=== PATIENT | female | born 1980 | race Caucasian/White ===

== ENCOUNTER 2017-10-31 15:09 | Emergency (ER) | payer OTHER ==
[2017-10-31 15:42] VITALS: BP 161/92; PULSE 65; RESP 18; TEMP 98.2
[2017-10-31] MEDS ORDERED: DIPH,PERTUS(ACELL)TETVAC-LF 0.5 ML VIAL IM ONE (15:51)
--- NOTE | 2017-10-31 16:05 | ED ---
General Adult HPI - General Chief complaint: Animal Bite Stated complaint: cat bite Time Seen by Provider: 10/31/17 15:49 Source: patient, RN notes reviewed Mode of arrival: ambulatory Limitations: no limitations - History of Present Illness Initial comments: 36-year-old female presents to the emergency department for a chief complaint of Bite times one day. Patient was bitten by her own cat this morning. Patient states it did bleed. Patient is concerned for infection. Patient denies any fevers or chills at home. Patient states the cat is an indoor cat and never has been outside. Patient states the cat is not vaccinated but is acting normally. Patient is concerned because she develops vaginal yeast infections with antibiotics. She would like Diflucan pill as that helps her. Patient states she did clean the wound out extensively earlier today. Patient has no other complaints at this time including shortness of breath, chest pain, abdominal pain, nausea or vomiting, headache, or visual changes. - Related Data Previous Rx's Medication Instructions Recorded Doxycycline Hyclate [Vibramycin] 100 mg PO BID 14 Days cap 10/31/17 Fluconazole [Diflucan] 150 mg PO ONCE #1 tab 10/31/17 Allergies Allergy/AdvReac Type Severity Reaction Status Date / Time cephalexin [From Keflex] Allergy Unknown Verified 10/31/17 15:42 Penicillins Allergy Unknown Verified 10/31/17 15:42 Review of Systems ROS Statement: Those systems with pertinent positive or pertinent negative responses have been documented in the HPI. ROS Other: All systems not noted in ROS Statement are negative. Past Medical History Past Medical History: No Reported History History of Any Multi-Drug Resistant Organisms: None Reported Past Surgical History: Section Past Psychological History: No Psychological Hx Reported Smoking Status: Never smoker Past Alcohol Use History: Unable to Obtain Past Drug Use History: None Reported General Exam Limitations: no limitations General appearance: alert, in no apparent distress Head exam: Present: atraumatic, normocephalic, normal inspection Eye exam: Present: normal appearance ENT exam: Present: normal exam, mucous membranes moist Neck exam: Present: normal inspection, full ROM. Absent: tenderness, meningismus, lymphadenopathy Respiratory exam: Present: normal lung sounds bilaterally. Absent: respiratory distress, wheezes, rales, rhonchi, stridor Cardiovascular Exam: Present: regular rate, normal rhythm, normal heart sounds. Absent: systolic murmur, diastolic murmur, rubs, gallop, clicks Extremities exam: Present: full ROM (Full range of motion of the right upper extremity including digits in the hand and wrist and elbow.), normal capillary refill (Refill less than 2 seconds and radial pulse 2+.), other (Patient has 2 puncture wounds on the dorsal right forearm. No drainage from the wounds. No slightly changes such as spreading redness. No excoriations noted.) Course Vital Signs 10/31/17 15:39 Temperature 98.2 F Pulse Rate 65 Respiratory 18 Rate Blood Pressure 161/92 O2 Sat by Pulse 100 Oximetry Medical Decision Making - Medical Decision Making 36-year-old female presents to the emergency department for a chief complaint Bite times one day. Patient was bitten earlier today. No signs of infection at this time. Is not vaccinated the patient states it is an indoor cat and has never been outside. Patient states she can monitor it for 10 days and watch for erratic behavior as recommended by CDC. There are 2 small puncture wounds on the right forearm. No signs of infection at this time. Patient's wounds were soaked in soapy water and cleaned thoroughly. She was given a tetanus shot in the emergency department. She is penicillin ALLERGIC so will be given doxycycline for 14 days. She will take Diflucan as well. She will follow up with primary care in 1-2 days and return to the emergency Department if she has any worsening symptoms or signs of infection including fever. Disposition Clinical Impression: Cat bite Disposition: HOME SELF-CARE Condition: Good Instructions: Animal Bite (ED) Additional Instructions: Please take antibiotic as directed. Please follow-up with primary care in 1-2 days. If symptoms worsen or he began to experience signs of infection such as spreading redness, streaking redness, drainage or fever return immediately. Please monitor the cat for the next 10 days for erratic behavior. Prescriptions: Doxycycline Hyclate [Vibramycin] 100 mg PO BID 14 Days cap Fluconazole [Diflucan] 150 mg PO ONCE #1 tab Is patient prescribed a controlled substance at d/c from ED?: No Referrals: Pipe Bernardo MD [Primary Care Provider] - 1-2 days Time of Disposition: 16:02
== END 2017-10-31 16:10 | disposition home or self-care (01) ==
LOC: EC 15:09
DX: S51.831A Puncture wound without foreign body of right forearm, initial encounter (principal); Z88.0 Allergy status to penicillin; Z88.1 Allergy status to other antibiotic agents; Z23 Encounter for immunization; W55.01XA Bitten by cat, initial encounter; Y92.009 Unspecified place in unspecified non-institutional (private) residence as the place of occurrence of the external cause
CPT/HCPCS: 90471; 90715; 99283

== ENCOUNTER 2018-09-25 23:20 | Emergency (ER) | payer OTHER ==
--- NOTE | 2018-09-26 00:20 | ED ---
General Adult HPI - General Source: patient, RN notes reviewed Mode of arrival: ambulatory Limitations: no limitations <Aidan Grullon - Last Filed: 09/26/18 00:51> <Lona Kaplan P - Last Filed: 09/26/18 02:39> - General Chief complaint: Urogenital Stated complaint: Possible foreign body Time Seen by Provider: 09/25/18 23:55 - History of Present Illness Initial comments: Patient is a pleasant 37-year-old female presenting to the emergency department with concern for possible retained tampon in the vaginal vault. Patient has had some symptoms for the past couple of days. Patient has noticed a discharge. Michael aguirre has had some mild pelvic discomfort. Patient has some urinary urgency and small amounts. Patient states she did have some nausea with an episode of vomiting. This has improved. Patient does admit to feeling anxious. (Aidan Grullon) - Related Data Previous Rx's Medication Instructions Recorded metroNIDAZOLE [Flagyl] 500 mg PO BID #14 tab 09/26/18 Allergies Allergy/AdvReac Type Severity Reaction Status Date / Time cephalexin [From Keflex] Allergy Unknown Verified 09/25/18 23:31 Penicillins Allergy Unknown Verified 09/25/18 23:31 Review of Systems ROS Other: All systems not noted in ROS Statement are negative. Constitutional: Reports: fever (Patient states she may have had a fever yesterday) Eyes: Denies: eye pain ENT: Denies: ear pain Respiratory: Denies: cough Cardiovascular: Denies: chest pain Endocrine: Denies: fatigue Gastrointestinal: Reports: as per HPI, nausea Genitourinary: Reports: urgency, frequency, discharge Musculoskeletal: Denies: back pain Skin: Denies: rash Neurological: Denies: weakness <Aidan Grullon - Last Filed: 09/26/18 00:51> ROS Other: All systems not noted in ROS Statement are negative. <Lona Kaplan P - Last Filed: 09/26/18 02:39> ROS Statement: Those systems with pertinent positive or pertinent negative responses have been documented in the HPI. Past Medical History Past Medical History: No Reported History History of Any Multi-Drug Resistant Organisms: None Reported Past Surgical History: Appendectomy, Section, Cholecystectomy Additional Past Surgical History / Comment(s): 2 tubal pregnancys Past Psychological History: No Psychological Hx Reported Smoking Status: Never smoker Past Alcohol Use History: Unable to Obtain Past Drug Use History: None Reported <Aidan Grullon - Last Filed: 09/26/18 00:51> General Exam Limitations: no limitations General appearance: alert, in no apparent distress Head exam: Present: atraumatic Eye exam: Present: normal appearance, PERRL ENT exam: Present: normal oropharynx Neck exam: Present: normal inspection Respiratory exam: Present: normal lung sounds bilaterally Cardiovascular Exam: Present: regular rate, normal rhythm GI/Abdominal exam: Present: soft. Absent: distended, tenderness External exam: Present: normal external exam (RN Adore is present) Speculum exam: Present: vaginal discharge By manual exam: Present: other (Mild diffuse tenderness) Extremities exam: Present: normal inspection. Absent: pedal edema, calf tenderness Neurological exam: Present: alert Psychiatric exam: Present: normal affect, normal mood Skin exam: Present: normal color <Aidan Grullon - Last Filed: 09/26/18 00:51> Course Vital Signs 09/25/18 23:28 Temperature 98.8 F Pulse Rate 98 Respiratory 18 Rate Blood Pressure 119/94 O2 Sat by Pulse 99 Oximetry Medical Decision Making <Aidan Grullon - Last Filed: 09/26/18 00:51> - Lab Data Result diagrams: 09/26/18 00:44 09/26/18 00:44 <Lona Kaplan - Last Filed: 09/26/18 02:39> - Medical Decision Making Patient would like further evaluation including blood work and ultrasound. This has been ordered. Vaginal cultures have been sent to lab. There is suspicion for bacterial vaginosis. Final disposition will be endorsed to Dr. Kaplan. (Aidan Grullon) - Lab Data Lab Results 09/26/18 09/26/18 09/26/18 Range/Units 00:00 00:00 00:44 WBC (3.8-10.6) k/uL RBC (3.80-5.40) m/uL Hgb (11.4-16.0) gm/dL Hct (34.0-46.0) % MCV (80.0-100.0) fL MCH (25.0-35.0) pg MCHC (31.0-37.0) g/dL RDW (11.5-15.5) % Plt Count (150-450) k/uL Neutrophils % % Lymphocytes % % Monocytes % % Eosinophils % % Basophils % % Neutrophils # (1.3-7.7) k/uL Lymphocytes # (1.0-4.8) k/uL Monocytes # (0-1.0) k/uL Eosinophils # (0-0.7) k/uL Basophils # (0-0.2) k/uL Sodium (137-145) mmol/L Potassium (3.5-5.1) mmol/L Chloride (98-107) mmol/L Carbon Dioxide (22-30) mmol/L Anion Gap mmol/L BUN (7-17) mg/dL Creatinine (0.52-1.04) mg/dL Est GFR (CKD-EPI)AfAm (>60 ml/min/1.73 sqM) Est GFR (CKD-EPI)NonAf (>60 ml/min/1.73 sqM) Glucose (74-99) mg/dL Calcium (8.4-10.2) mg/dL Total Bilirubin (0.2-1.3) mg/dL AST (14-36) U/L ALT (9-52) U/L Alkaline Phosphatase (38-126) U/L Total Protein (6.3-8.2) g/dL Albumin (3.5-5.0) g/dL Urine Color Yellow Urine Appearance Cloudy H (Clear) Urine pH 6.0 (5.0-8.0) Ur Specific Brandon 1.033 (1.001-1.035) Urine Protein 1+ H (Negative) Urine Glucose (UA) Negative (Negative) Urine Ketones Trace H (Negative) Urine Blood Moderate H (Negative) Urine Nitrite Negative (Negative) Urine Bilirubin Negative (Negative) Urine Urobilinogen 2.0 (<2.0) mg/dL Ur Leukocyte Esterase Moderate H (Negative) Urine RBC >182 H (0-5) /hpf Urine WBC 1 (0-5) /hpf Ur Squamous Epith Cells 12 H (0-4) /hpf Urine Mucus Many H (None) /hpf Urine HCG, Qual Not Detected (Not Detectd) Trichomonas Ag (Rapid) Negative (Negative) 09/26/18 09/26/18 Range/Units 00:44 00:44 WBC 7.1 (3.8-10.6) k/uL RBC 4.51 (3.80-5.40) m/uL Hgb 13.2 (11.4-16.0) gm/dL Hct 38.3 (34.0-46.0) % MCV 84.9 (80.0-100.0) fL MCH 29.2 (25.0-35.0) pg MCHC 34.4 (31.0-37.0) g/dL RDW 12.8 (11.5-15.5) % Plt Count 260 (150-450) k/uL Neutrophils % 48 % Lymphocytes % 42 % Monocytes % 7 % Eosinophils % 1 % Basophils % 0 % Neutrophils # 3.4 (1.3-7.7) k/uL Lymphocytes # 3.0 (1.0-4.8) k/uL Monocytes # 0.5 (0-1.0) k/uL Eosinophils # 0.1 (0-0.7) k/uL Basophils # 0.0 (0-0.2) k/uL Sodium 138 (137-145) mmol/L Potassium 3.7 (3.5-5.1) mmol/L Chloride 104 (98-107) mmol/L Carbon Dioxide 27 (22-30) mmol/L Anion Gap 7 mmol/L BUN 14 (7-17) mg/dL Creatinine 0.75 (0.52-1.04) mg/dL Est GFR (CKD-EPI)AfAm >90 (>60 ml/min/1.73 sqM) Est GFR (CKD-EPI)NonAf >90 (>60 ml/min/1.73 sqM) Glucose 85 (74-99) mg/dL Calcium 9.3 (8.4-10.2) mg/dL Total Bilirubin 0.9 (0.2-1.3) mg/dL AST 19 (14-36) U/L ALT 16 (9-52) U/L Alkaline Phosphatase 42 (38-126) U/L Total Protein 6.4 (6.3-8.2) g/dL Albumin 4.1 (3.5-5.0) g/dL Urine Color Urine Appearance (Clear) Urine pH (5.0-8.0) Ur Specific Brandon (1.001-1.035) Urine Protein (Negative) Urine Glucose (UA) (Negative) Urine Ketones (Negative) Urine Blood (Negative) Urine Nitrite (Negative) Urine Bilirubin (Negative) Urine Urobilinogen (<2.0) mg/dL Ur Leukocyte Esterase (Negative) Urine RBC (0-5) /hpf Urine WBC (0-5) /hpf Ur Squamous Epith Cells (0-4) /hpf Urine Mucus (None) /hpf Urine HCG, Qual (Not Detectd) Trichomonas Ag (Rapid) (Negative) Disposition <Aidan Grullon - Last Filed: 09/26/18 00:51> Is patient prescribed a controlled substance at d/c from ED?: No <Lona Kaplan - Last Filed: 09/26/18 02:39> Clinical Impression: Bacterial vaginosis Disposition: HOME SELF-CARE Condition: Stable Instructions (If sedation given, give patient instructions): Bacterial Vaginosis (ED) Prescriptions: metroNIDAZOLE [Flagyl] 500 mg PO BID #14 tab Referrals: None,Stated [Primary Care Provider] - 1-2 days
[2018-09-26 00:31] LABS: Appearance,Urine Cloudy (Clear); Bilirubin,Urine Negative (Negative); Blood,Urine Moderate (Negative); Color,Urine Yellow; Glucose,Urine (UA) Negative (Negative); Ketones,Urine Trace (Negative); Leukocyte Esterase,Urine Moderate (Negative); Mucus,Urine Many /hpf; Nitrite,Urine Negative (Negative); Protein,Urine 1+ (Negative); RBC,Urine >182 /hpf (0-5); Specific Gravity,Urine 1.033 (1.001-1.035); Squamous Epithelial Cell,Urine 12 /hpf (0-4); WBC,Urine 1 /hpf (0-5)
[2018-09-26] MEDS ORDERED: SODIUM CHLORIDE 0.9% 1,000 ML IV ONE (00:50)
[2018-09-26] MEDS ORDERED: ONDANSETRON 4 MG/2 ML VIAL IVP STA (00:50)
[2018-09-26 01:16] LABS: Basophils % (A) 0 %; Eosinophils # (A) 0.1 k/uL (0-0.7); Eosinophils % (A) 1 %; HCT 38.3 % (34.0-46.0); HGB 13.2 gm/dL (11.4-16.0); Lymphocytes % (A) 42 %; MCH 29.2 pg (25.0-35.0); MCHC 34.4 g/dL (31.0-37.0); MCV 84.9 fL (80.0-100.0); Monocytes # (A) 0.5 k/uL (0-1.0); Monocytes % (A) 7 %; Neutrophils # (A) 3.4 k/uL (1.3-7.7); Neutrophils % (A) 48 %; Platelet Count 260 k/uL (150-450); RBC 4.51 m/uL (3.80-5.40); RDW 12.8 % (11.5-15.5); WBC 7.1 k/uL (3.8-10.6)
[2018-09-26 01:24] LABS: ALT 16 U/L (9-52); AST 19 U/L (14-36); Albumin 4.1 g/dL (3.5-5.0); Alkaline Phosphatase 42 U/L (38-126); Anion Gap 7 mmol/L; Blood Urea Nitrogen 14 mg/dL (7-17); Calcium 9.3 mg/dL (8.4-10.2); Carbon Dioxide 27 mmol/L (22-30); Chloride 104 mmol/L (98-107); Glucose 85 mg/dL (74-99); Potassium 3.7 mmol/L (3.5-5.1); Sodium 138 mmol/L (137-145); Total Bilirubin 0.9 mg/dL (0.2-1.3); Total Protein 6.4 g/dL (6.3-8.2)
--- NOTE | 2018-09-26 01:51 | US ---
EXAM: US Pelvis Complete, Transabdominal US Pelvis, Transvaginal CLINICAL HISTORY: ITS.REASON US Reason: pain TECHNIQUE: Real-time transabdominal and transvaginal pelvic ultrasound (complete) with image documentation. Transvaginal imaging was used for better evaluation of the endometrium and adnexa. COMPARISON: No relevant prior studies available. FINDINGS: EXAM MEASUREMENTS: Uterus: 8.7 x 4.9 x 6.1 cm Endometrial Stripe: 1.2 cm Right Ovary: 3.2 x 2.0 x 1.8 cm Left Ovary: 3.1 x 2.5 x 2.4 cm Uterus is anteverted and appears normal. Endometrial complex is unremarkable. Ovaries are identified and appear normal. Spectral, color, and waveform doppler imaging shows good arterial and venous flow within the ovaries; there is no evidence for ovarian torsion. No adnexal masses or significant free pelvic fluid. IMPRESSION: No significant abnormality.
--- NOTE | 2018-09-26 02:22 | XR ---
EXAM: XR Abdomen, 2 Views CLINICAL HISTORY: ITS.REASON XR Reason: Pain TECHNIQUE: Frontal view of the abdomen/pelvis with upright view of the abdomen. COMPARISON: No relevant prior studies available. FINDINGS: Lower thorax: Lung bases are clear. Intraperitoneal space: No free intraperitoneal air. Gastrointestinal tract: Normal bowel gas pattern. No dilation. Organs: Prior cholecystectomy. Bones/joints: Bones are normal for age. Vasculature: Multiple phleboliths at the inferior pelvis. Other findings: No suspicious calcifications. IMPRESSION: No acute disease or bowel obstruction.
[2018-09-26 03:12] VITALS: BP 122/73; PULSE 84; RESP 19; TEMP 97.9
[2018-09-27 15:31] LABS: N. gonorrhoeae,PCR Negative (Neg,Equiv); Neisseria Source Vagina
[2018-09-27 15:32] LABS: C. trachomatis,PCR Negative (Neg,Equiv); Chlamydia trachomatis Source Vagina
== END 2018-09-26 02:49 | disposition home or self-care (01) ==
LOC: EC 23:20
DX: N76.0 Acute vaginitis (principal); R11.2 Nausea with vomiting, unspecified; R39.15 Urgency of urination; R19.8 Other specified symptoms and signs involving the digestive system and abdomen; Z88.0 Allergy status to penicillin; Z88.1 Allergy status to other antibiotic agents; Z90.49 Acquired absence of other specified parts of digestive tract
CPT/HCPCS: 36415; 74018; 76830; 80053; 81001; 81025; 85025; 87070; 87086; 87205; 87491; 87591; 87808; 93975; 96361; 96374; 99284

== ENCOUNTER 2022-02-27 13:34 | Emergency (ER) | payer OTHER ==
[2022-02-27 13:49] VITALS: BP 142/83; PULSE 66; RESP 18; TEMP 98
--- NOTE | 2022-02-27 17:01 | US ---
EXAMINATION TYPE: US venous doppler duplex LE RT DATE OF EXAM: 02/27/2022 4:38 PM COMPARISON: NONE CLINICAL HISTORY: pain. stung by a bee 2 weeks ago. Epi pen shot right leg. Bruising and pain right l eg SIDE PERFORMED: Right TECHNIQUE: The lower extremity deep venous system is examined utilizing real time linear array sonog andres with graded compression, doppler sonography and color-flow sonography. VESSELS IMAGED: Common Femoral Vein Deep Femoral Vein Greater Saphenous Vein * Femoral Vein Popliteal Vein Small Saphenous Vein * Proximal Calf Veins (* superficial vessels) Right Leg: no evidence of DVT IMPRESSION: No sign of deep vein thrombosis in the right leg.
[2022-02-27] MEDS ORDERED: CYCLOBENZAPRINE 5 MG TAB PO STA (17:14)
[2022-02-27] MEDS ORDERED: KETOROLAC 15 MG/ML 1 ML VIAL IVP STA (17:14)
--- NOTE | 2022-02-27 18:23 | ED ---
Skin/Abscess/FB HPI - General Chief complaint: Skin/Abscess/Foreign Body Stated complaint: right leg-bruising & swelling Time Seen by Provider: 02/27/22 16:13 Source: patient Mode of arrival: ambulatory Limitations: no limitations - History of Present Illness Initial comments: Patient is a 41-year-old female who presents to the emergency department with a chief complaint of right leg pain. 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 States today she noticed bruising in her leg with pain. Patient uses the EpiPen in her right lateral which resulted in swelling near the region. The next day she noticed bruising on the outsides of her right knee. She denies injury. States the bruising is continue to trave l down her leg over the past 2 weeks. The pain has shifted from behind her knee to the front and back of her lower leg. Taking Motrin for pain with some relief. Denies leg numbness, tingling, weakness. She denies history of DVT and PE. Denies family history of DVT and PE. Denies history of blood disorders although does admit to family history of clotting disorder that her aunt has which she does not know the name of. Denies fever, chills, chest pain, shortness of breath, - Related Data Previous Rx's Medication Instructions Recorded metroNIDAZOLE [Flagyl] 500 mg PO BID #14 tab 09/26/18 Allergies Allergy/AdvReac Type Severity Reaction Status Date / Time bee pollen Allergy Swelling Verified 02/27/22 13:49 cephalexin [From Keflex] Allergy Unknown Verified 02/27/22 13:49 Penicillins Allergy Unknown Verified 02/27/22 13:49 Review of Systems ROS Statement: Those systems with pertinent positive or pertinent negative responses have been documented in the HPI. ROS Other: All systems not noted in ROS Statement are negative. Past Medical History Past Medical History: No Reported History History of Any Multi-Drug Resistant Organisms: None Reported Past Surgical History: Appendectomy, Section, Cholecystectomy Additional Past Surgical History / Comment(s): 2 tubal pregnancys Past Psychological History: No Psychological Hx Reported Smoking Status: Former smoker Past Alcohol Use History: Unable to Obtain Past Drug Use History: None Reported General Exam Limitations: no limitations General appearance: alert, in no apparent distress Head exam: Present: atraumatic, normocephalic, normal inspection Eye exam: Present: normal appearance, PERRL, EOMI. Absent: scleral icterus, conjunctival injection, periorbital swelling Respiratory exam: Present: normal lung sounds bilaterally. Absent: respiratory distress, wheezes, rales, rhonchi, stridor Cardiovascular Exam: Present: regular rate, normal rhythm, normal heart sounds. Absent: systolic murmur, diastolic murmur, rubs, gallop, clicks Extremities exam: Present: full ROM, normal capillary refill, other (ecchymosis which starts at the medial/lateral aspect of right knee and travels down lower leg. no swelling. no foot involvement. skin warm, neurovascularly intact). Absent: pedal edema, joint swelling, calf tenderness Neurological exam: Present: alert, oriented X3, CN II-XII intact Psychiatric exam: Present: normal affect, normal mood Skin exam: Present: warm, dry, intact, normal color. Absent: rash Course Vital Signs 02/27/22 13:46 Temperature 98.0 F Pulse Rate 66 Respiratory 18 Rate Blood Pressure 142/83 O2 Sat by Pulse 100 Oximetry Medical Decision Making - Medical Decision Making This is a 41-year-old female presenting with bruising and pain in the right lower extremity. Ecchymosis noted which starts at the medial/lateral aspect of right knee and travels down lower leg. no swelling. no foot involvement. skin warm, neurovascularly intact. Full ROM, no pain with ROM. No calf tenderness. No chest pain or SOB. Ultrasound with Doppler was obtained and interpreted by me which is negative for DVT. Laboratory studies obtained. Platelets normal. PT, INR, PTT normal. Patient given Toradol and and muscle relaxer with improvement of pain. Results discussed with patient. Patient likely experiencing pain due to hematoma. Patient will be discharged with symptomatic instructions. Dr. De Dios is my attending. - Lab Data Result diagrams: 02/27/22 18:16 02/27/22 18:16 Lab Results 02/27/22 02/27/22 02/27/22 Range/Units 18:16 18:16 18:16 WBC 6.6 (3.8-10.6) k/uL RBC 4.43 (3.80-5.40) m/uL Hgb 13.5 (11.4-16.0) gm/dL Hct 39.4 (34.0-46.0) % MCV 89.0 (80.0-100.0) fL MCH 30.6 (25.0-35.0) pg MCHC 34.4 (31.0-37.0) g/dL RDW 12.0 (11.5-15.5) % Plt Count 233 (150-450) k/uL MPV 8.2 Neutrophils % 57 % Lymphocytes % 33 % Monocytes % 5 % Eosinophils % 3 % Basophils % 0 % Neutrophils # 3.8 (1.3-7.7) k/uL Lymphocytes # 2.2 (1.0-4.8) k/uL Monocytes # 0.3 (0-1.0) k/uL Eosinophils # 0.2 (0-0.7) k/uL Basophils # 0.0 (0-0.2) k/uL PT 10.5 (9.0-12.0) sec INR 1.0 (<1.2) APTT 27.8 (22.0-30.0) sec Sodium 138 (137-145) mmol/L Potassium 4.1 (3.5-5.1) mmol/L Chloride 104 (98-107) mmol/L Carbon Dioxide 28 (22-30) mmol/L Anion Gap 6 mmol/L BUN 10 (7-17) mg/dL Creatinine 0.71 (0.52-1.04) mg/dL Est GFR (CKD-EPI)AfAm >90 (>60 ml/min/1.73 sqM) Est GFR (CKD-EPI)NonAf >90 (>60 ml/min/1.73 sqM) Glucose 98 (74-99) mg/dL Calcium 9.2 (8.4-10.2) mg/dL Total Bilirubin 0.6 (0.2-1.3) mg/dL AST 20 (14-36) U/L ALT 17 (4-34) U/L Alkaline Phosphatase 61 (38-126) U/L Total Protein 6.8 (6.3-8.2) g/dL Albumin 4.6 (3.5-5.0) g/dL Disposition Clinical Impression: Right leg pain, Ecchymosis, Hematoma Disposition: HOME SELF-CARE Condition: Good Instructions (If sedation given, give patient instructions): Hematoma (ED) Additional Instructions: Take anti-inflammatories for pain. Elevate right lower extremity. Follow-up with primary care provider in one to 2 days. Return to the emergency department experience new, concerning, or worsening symptoms. Is patient prescribed a controlled substance at d/c from ED?: No Referrals: None,Stated [Primary Care Provider] - 1-2 days Time of Disposition: 19:28
[2022-02-27 18:28] LABS: Basophils % (A) 0 %; Eosinophils # (A) 0.2 k/uL (0-0.7); Eosinophils % (A) 3 %; HCT 39.4 % (34.0-46.0); HGB 13.5 gm/dL (11.4-16.0); Lymphocytes # (A) 2.2 k/uL (1.0-4.8); Lymphocytes % (A) 33 %; MCH 30.6 pg (25.0-35.0); MCHC 34.4 g/dL (31.0-37.0); Mean Platelet Volume 8.2; Monocytes # (A) 0.3 k/uL (0-1.0); Monocytes % (A) 5 %; Neutrophils # (A) 3.8 k/uL (1.3-7.7); Neutrophils % (A) 57 %; Platelet Count 233 k/uL (150-450); RBC 4.43 m/uL (3.80-5.40); WBC 6.6 k/uL (3.8-10.6)
[2022-02-27 18:36] LABS: Partial Thromboplastin Time 27.8 sec (22.0-30.0); Prothrombin Time 10.5 sec (9.0-12.0)
[2022-02-27 18:37] LABS: ALT 17 U/L (4-34); AST 20 U/L (14-36); African American GFR (CKD) >90 (>60 ml/min/1.73 sqM); Albumin 4.6 g/dL (3.5-5.0); Alkaline Phosphatase 61 U/L (38-126); Anion Gap 6 mmol/L; Blood Urea Nitrogen 10 mg/dL (7-17); Calcium 9.2 mg/dL (8.4-10.2); Carbon Dioxide 28 mmol/L (22-30); Chloride 104 mmol/L (98-107); Glucose 98 mg/dL (74-99); Non-African American GFR(CKD) >90 (>60 ml/min/1.73 sqM); Potassium 4.1 mmol/L (3.5-5.1); Sodium 138 mmol/L (137-145); Total Bilirubin 0.6 mg/dL (0.2-1.3); Total Protein 6.8 g/dL (6.3-8.2)
== END 2022-02-27 19:48 | disposition home or self-care (01) ==
LOC: EC 13:34
DX: S80.11XA Contusion of right lower leg, initial encounter (principal); Z86.718 Personal history of other venous thrombosis and embolism; Z86.73 Personal history of transient ischemic attack (TIA), and cerebral infarction without residual deficits; Z91.030 Bee allergy status; Z88.0 Allergy status to penicillin; Z88.1 Allergy status to other antibiotic agents; Z87.891 Personal history of nicotine dependence; W46.0XXA Contact with hypodermic needle, initial encounter
CPT/HCPCS: 36415; 80053; 85025; 85610; 85730; 93971; 99284; 96374; J1885

== ENCOUNTER 2023-06-20 18:44 | Emergency (ER) | payer OTHER ==
[2023-06-20 20:09] LABS: Basophils # (A) 0.1 k/uL (0-0.2); Basophils % (A) 1 %; Eosinophils # (A) 0.1 k/uL (0-0.7); Eosinophils % (A) 1 %; HGB 14.6 gm/dL (11.4-16.0); Lymphocytes # (A) 1.7 k/uL (1.0-4.8); Lymphocytes % (A) 25 %; MCH 30.9 pg (25.0-35.0); MCHC 33.9 g/dL (31.0-37.0); MCV 91.1 fL (80.0-100.0); Mean Platelet Volume 8.6; Monocytes # (A) 0.3 k/uL (0-1.0); Monocytes % (A) 5 %; Neutrophils # (A) 4.4 k/uL (1.3-7.7); Neutrophils % (A) 67 %; Platelet Count 239 k/uL (150-450); RBC 4.72 m/uL (3.80-5.40); RDW 11.6 % (11.5-15.5); WBC 6.6 k/uL (3.8-10.6)
[2023-06-20 20:18] LABS: ALT 15 U/L (4-34); AST 32 U/L (14-36); African American GFR (CKD) >90 (>60 ml/min/1.73 sqM); Albumin 5.4 g/dL (3.5-5.0); Alkaline Phosphatase 55 U/L (38-126); Anion Gap 10 mmol/L; Blood Urea Nitrogen 6 mg/dL (7-17); Calcium 9.7 mg/dL (8.4-10.2); Carbon Dioxide 27 mmol/L (22-30); Chloride 103 mmol/L (98-107); Glucose 92 mg/dL (74-99); Non-African American GFR(CKD) >90 (>60 ml/min/1.73 sqM); Sodium 140 mmol/L (137-145); Total Bilirubin 1.1 mg/dL (0.2-1.3); Total Protein 8.5 g/dL (6.3-8.2)
[2023-06-20 20:28] LABS: Potassium 4.6 mmol/L (3.5-5.1)
--- NOTE | 2023-06-20 21:24 | ED ---
General Adult HPI - General Chief complaint: Chest Pain Stated complaint: throat pain,chest pain Time Seen by Provider: 06/20/23 19:12 Source: patient, family Mode of arrival: ambulatory Limitations: no limitations - History of Present Illness Initial comments: This patient is a 42-year-old woman who presents to have evaluation of swollen lymph nodes in the neck. She states this has been going on for some weeks now. She was seen at an urgent care, and was sent to have emergency department evaluation. Patient has not noted any difficulty in speech or swallowing. She states she may have had some associated low-grade temperature and intermittent sore throat. No cough or dyspnea. She has not noted weight loss, night sweats -: week(s) Location: neck Radiation: non-radiation Severity scale (1-10): 1 Quality: dull Consistency: intermittent Improves with: none Worsens with: none Associated Symptoms: fever/chills Treatments Prior to Arrival: none - Related Data Previous Rx's Medication Instructions Recorded metroNIDAZOLE [Flagyl] 500 mg PO BID #14 tab 09/26/18 Azithromycin [Zithromax] 0 mg PO DIRECTED #6 tab 06/20/23 Allergies Allergy/AdvReac Type Severity Reaction Status Date / Time bee pollen Allergy Swelling Verified 02/27/22 13:49 cephalexin [From Keflex] Allergy Unknown Verified 02/27/22 13:49 Penicillins Allergy Unknown Verified 02/27/22 13:49 Review of Systems ROS Statement: Those systems with pertinent positive or pertinent negative responses have been documented in the HPI. ROS Other: All systems not noted in ROS Statement are negative. Constitutional: Reports: as per HPI ENT: Reports: throat pain. Denies: ear pain, hearing loss Respiratory: Denies: cough, dyspnea, stridor Cardiovascular: Denies: chest pain, palpitations Gastrointestinal: Denies: abdominal pain, nausea, vomiting, diarrhea Genitourinary: Denies: dysuria, hematuria Musculoskeletal: Denies: back pain Skin: Denies: rash Neurological: Denies: headache, weakness, numbness Past Medical History Past Medical History: No Reported History History of Any Multi-Drug Resistant Organisms: None Reported Past Surgical History: Appendectomy, Section, Cholecystectomy Additional Past Surgical History / Comment(s): 2 tubal pregnancys Past Psychological History: No Psychological Hx Reported Smoking Status: Former smoker Past Alcohol Use History: Unable to Obtain Past Drug Use History: None Reported General Exam Limitations: no limitations General appearance: alert, in no apparent distress Head exam: Present: atraumatic, normocephalic Eye exam: Present: normal appearance. Absent: scleral icterus, conjunctival injection ENT exam: Present: normal oropharynx, mucous membranes moist, TM's normal bilaterally, normal external ear exam Neck exam: Present: normal inspection, tenderness, full ROM, lymphadenopathy. Absent: meningismus, thyromegaly Respiratory exam: Present: normal lung sounds bilaterally. Absent: respiratory distress, wheezes, rales, rhonchi, stridor, accessory muscle use Cardiovascular Exam: Present: regular rate, normal rhythm, normal heart sounds. Absent: systolic murmur, diastolic murmur, rubs, gallop GI/Abdominal exam: Present: soft. Absent: distended, tenderness, guarding, rebound, rigid, organomegaly, mass Extremities exam: Present: normal inspection, normal capillary refill. Absent: pedal edema, calf tenderness Back exam: Present: normal inspection. Absent: CVA tenderness (R), CVA tenderness (L) Neurological exam: Present: alert Skin exam: Present: warm, dry, intact, normal color. Absent: rash Course Vital Signs 06/20/23 06/20/23 06/20/23 19:04 21:00 22:37 Temperature 98.4 F 98.3 F Pulse Rate 79 68 Respiratory 16 18 Rate Blood Pressure 202/113 146/129 183/109 O2 Sat by Pulse 99 99 100 Oximetry Medical Decision Making - Medical Decision Making Patient is 42-year-old woman here to have evaluation of cervical lymphadenopathy. The initial workup here unremarkable. Given her history the patient has sent out labs. We discussed appropriate further care and follow-up Was pt. sent in by a medical professional or institution (, PA, DREDGE MECHANIC, urgent care, hospital, or penitentiary...) When possible be specific @ -[No] Did you speak to anyone other than the patient for history (EMS, parent, family, police, friend...)? What history was obtained from this source @ -[No] Did you review nursing and triage notes (agree or disagree)? Why? @ -[I reviewed and agree with nursing and triage notes] Were old charts reviewed (outside hosp., previous admission, EMS record, old EKG, old radiological studies, urgent care reports/EKG's, penitentiary records)? Report findings @ -[No old charts were reviewed] Differential Diagnosis (chest pain, altered mental status, abdominal pain women, abdominal pain men, vaginal bleeding, weakness, fever, dyspnea, syncope, headache, dizziness, GI bleed, back pain, seizure, CVA, palpatations, mental health, musculoskeletal)? @ -[Differential diagnosis includes infectious conditions, autoimmune conditions, malignancy, EKG interpreted by me (3pts min.). @ -[As above] X-rays interpreted by me (1pt min.). @ -[None done] CT interpreted by me (1pt min.). @ -[None done] U/S interpreted by me (1pt. min.). @ -[None done] What testing was considered but not performed or refused? (CT, X-rays, U/S, labs)? Why? @ -[None] What meds were considered but not given or refused? Why? @ -[None] Did you discuss the management of the patient with other professionals (professionals i.e. , PA, DREDGE MECHANIC, lab, RT, psych nurse, social and political studies professor, latex spooler, teacher, enforcement safety officer, manager battery)? Give summary @ -[No] Was smoking cessation discussed for >3mins.? @ -[No] Was critical care preformed (if so, how long)? @ -[No] Were there social determinants of health that impacted care today? How? (Homelessness, low income, unemployed, alcoholism, drug addiction, transportation, low edu. Level, literacy, decrease access to med. care, halfway, rehab)? @ -[No] Was there de-escalation of care discussed even if they declined (Discuss DNR or withdrawal of care, Hospice)? DNR status @ -[No] What co-morbidities impacted this encounter? (DM, HTN, Smoking, COPD, CAD, Cancer, CVA, ARF, Chemo, Hep., AIDS, mental health diagnosis, sleep apnea, morbid obesity)? @ -[None] Was patient admitted / discharged? Hospital course, mention meds given and route, prescriptions, significant lab abnormalities, going to OR and other pertinent info. @ -[Patient discharged with instructions for further care and follow-up as well as return parameters Undiagnosed new problem with uncertain prognosis? @ -[No] Drug Therapy requiring intensive monitoring for toxicity (Heparin, Nitro, Insulin, Cardizem)? @ -[No] Were any procedures done? @ -[No] Diagnosis/symptom? @ -Lymphadenopathy Acute, or Chronic, or Acute on Chronic? @ -[Acute Uncomplicated (without systemic symptoms) or Complicated (systemic symptoms)? @ -[Uncomplicated Side effects of treatment? @ -[No] Exacerbation, Progression, or Severe Exacerbation? @ -[No] Poses a threat to life or bodily function? How? (Chest pain, [place], [place], pneumonia, PE, COPD, DKA, ARF, appy, cholecystitis, CVA, Diverticulitis, Homicidal, Suicidal, threat to staff... and all critical care pts) @ -[No] - Lab Data Result diagrams: 06/20/23 19:15 06/20/23 19:15 Lab Results 06/20/23 06/20/23 06/20/23 Range/Units 19:15 19:15 19:15 WBC 6.6 (3.8-10.6) k/uL RBC 4.72 (3.80-5.40) m/uL Hgb 14.6 (11.4-16.0) gm/dL Hct 43.0 (34.0-46.0) % MCV 91.1 (80.0-100.0) fL MCH 30.9 (25.0-35.0) pg MCHC 33.9 (31.0-37.0) g/dL RDW 11.6 (11.5-15.5) % Plt Count 239 (150-450) k/uL MPV 8.6 Neutrophils % 67 % Lymphocytes % 25 % Monocytes % 5 % Eosinophils % 1 % Basophils % 1 % Neutrophils # 4.4 (1.3-7.7) k/uL Lymphocytes # 1.7 (1.0-4.8) k/uL Monocytes # 0.3 (0-1.0) k/uL Eosinophils # 0.1 (0-0.7) k/uL Basophils # 0.1 (0-0.2) k/uL ESR 4 (0-20) mm/Hr Sodium 140 (137-145) mmol/L Potassium 4.6 (3.5-5.1) mmol/L Chloride 103 (98-107) mmol/L Carbon Dioxide 27 (22-30) mmol/L Anion Gap 10 mmol/L BUN 6 L (7-17) mg/dL Creatinine 0.66 (0.52-1.04) mg/dL Est GFR (CKD-EPI)AfAm >90 (>60 ml/min/1.73 sqM) Est GFR (CKD-EPI)NonAf >90 (>60 ml/min/1.73 sqM) Glucose 92 (74-99) mg/dL Calcium 9.7 (8.4-10.2) mg/dL Total Bilirubin 1.1 (0.2-1.3) mg/dL AST 32 (14-36) U/L ALT 15 (4-34) U/L Alkaline Phosphatase 55 (38-126) U/L Total Protein 8.5 H (6.3-8.2) g/dL Albumin 5.4 H (3.5-5.0) g/dL Rheumatoid Factor <15 (0-15) IU/mL AKSHAT Screen (Negative) Heterophile Antibody Negative (Negative) HIV-1 Antibody (Non-Reactive) HIV Ag/Ab Interpret HIV p24 Antibody (Non-Reactive) HIV-2 Antibody (Non-Reactive) HIV P24 Antigen (Non-Reactive) 06/20/23 06/20/23 Range/Units 19:15 20:01 WBC (3.8-10.6) k/uL RBC (3.80-5.40) m/uL Hgb (11.4-16.0) gm/dL Hct (34.0-46.0) % MCV (80.0-100.0) fL MCH (25.0-35.0) pg MCHC (31.0-37.0) g/dL RDW (11.5-15.5) % Plt Count (150-450) k/uL MPV Neutrophils % % Lymphocytes % % Monocytes % % Eosinophils % % Basophils % % Neutrophils # (1.3-7.7) k/uL Lymphocytes # (1.0-4.8) k/uL Monocytes # (0-1.0) k/uL Eosinophils # (0-0.7) k/uL Basophils # (0-0.2) k/uL ESR (0-20) mm/Hr Sodium (137-145) mmol/L Potassium (3.5-5.1) mmol/L Chloride (98-107) mmol/L Carbon Dioxide (22-30) mmol/L Anion Gap mmol/L BUN (7-17) mg/dL Creatinine (0.52-1.04) mg/dL Est GFR (CKD-EPI)AfAm (>60 ml/min/1.73 sqM) Est GFR (CKD-EPI)NonAf (>60 ml/min/1.73 sqM) Glucose (74-99) mg/dL Calcium (8.4-10.2) mg/dL Total Bilirubin (0.2-1.3) mg/dL AST (14-36) U/L ALT (4-34) U/L Alkaline Phosphatase (38-126) U/L Total Protein (6.3-8.2) g/dL Albumin (3.5-5.0) g/dL Rheumatoid Factor (0-15) IU/mL AKSHAT Screen Negative (Negative) Heterophile Antibody (Negative) HIV-1 Antibody Non-Reactive (Non-Reactive) HIV Ag/Ab Interpret HIV p24 Antibody Non-Reactive (Non-Reactive) HIV-2 Antibody Non-Reactive (Non-Reactive) HIV P24 Antigen Non-Reactive (Non-Reactive) Disposition Clinical Impression: Cervical lymphadenopathy, Hypertension Disposition: HOME SELF-CARE Condition: Good Instructions (If sedation given, give patient instructions): Lymphadenopathy (ED), Hypertension (ED) Prescriptions: Azithromycin [Zithromax] 0 mg PO DIRECTED #6 tab Is patient prescribed a controlled substance at d/c from ED?: No Referrals: Karis Rodriguez MD [Primary Care Provider] - 1-2 days Fausto Hollis MD [REFERRING] - 1-2 days
[2023-06-20 22:54] VITALS: BP 183/109; PULSE 68; RESP 18; TEMP 98.3
[2023-06-20] MEDS: cloNIDine HCL 0.2 MG TAB PO STA (22:57)
[2023-06-21 03:15] LABS: Rheumatoid Factor, Qnt <15 IU/mL (0-15)
[2023-06-21 04:02] LABS: HIV 2 AB Non-Reactive (Non-Reactive); HIV AB P24 Non-Reactive (Non-Reactive); HIV P24 AG Non-Reactive (Non-Reactive)
[2023-06-21 10:06] LABS: Erythrocyte Sedimentation Rate 4 mm/Hr (0-20)
[2023-06-24 13:46] LABS: HIV-1 RNA Not detected (Not detected)
== END 2023-06-20 23:02 | disposition home or self-care (01) ==
LOC: EC 18:44
DX: I10 Essential (primary) hypertension (principal); R59.0 Localized enlarged lymph nodes; Z87.891 Personal history of nicotine dependence; Z88.0 Allergy status to penicillin; Z88.1 Allergy status to other antibiotic agents; Z91.030 Bee allergy status
CPT/HCPCS: 36415; 80053; 85025; 85652; 86038; 86308; 86431; 87390; 87535; 99285

== ENCOUNTER → 2023-07-11 | Outpatient (CLI) | payer OTHER ==
--- NOTE | 2023-07-11 18:20 | US ---
EXAMINATION TYPE: US thyroid st tissue head/neck DATE OF EXAM: 07/11/2023 COMPARISON: NONE CLINICAL INDICATION: Female, 42 years old with history of R59.0 LOCALIZED ENLARGED LYMPHNO; Swelling bilateral neck since mid march, L>R TECHNIQUE: Grayscale imaging of the neck including the thyroid gland with color Doppler imaging. FINDINGS: Multiple lymph nodes seen bilateral neck, nodules noted bilateral thyroid. Left largest lymph node = 2.6 x 0.9 x 1.3 cm Left thyroid nodule = 1.6 x 0.8 x 1.0 cm TIRADS Score: 4 TIRADS Category 4: Composition: Solid or almost completely solid (2 points). Echogenicity: Hypoechoic (2 points). Shape: Wider than tall (0 points). Margin: Smooth (0 points). Echogenic foci: None or large comet-tail artifacts (0 points) Recommendation: If >1.5cm: FNA; If >1cm: Follow up at 1,2, 3,5 years Right largest lymph node = 2.1 x 0.5 x 1.8 cm Right thyroid nodule = 0.9 x 0.5 x 1.0 cm TIRADS Score: 4 TIRADS Category 4: Composition: Solid or almost completely solid (2 points). Echogenicity: Hypoechoic (2 points). Shape: Wider than tall (0 points). Margin: Smooth (0 points). Echogenic foci: None or large comet-tail artifacts (0 points) Recommendation: If >1.5cm: FNA; If >1cm: Follow up at 1,2, 3,5 years IMPRESSION: 1. Bilateral thyroid nodules, the left thyroid nodule meets criteria for fine-needle aspiration if n ot already performed. 2. No enlarged lymph nodes of the neck.
--- NOTE | 2023-07-12 11:21 | MM ---
Reason for Exam: Screening (asymptomatic). Patient History: Menarche at age 12. First Full-Term at age 25. Patient has history of breast feeding. Maternal aunt had ovarian cancer under age 50. Risk Values: Mariann 5 year model risk: 0.6%. NCI Lifetime model risk: 9.8%. Tissue Density: The breasts are heterogeneously dense, which may obscure small masses. Findings: Analyzed By CAD. There is no suspicious group of microcalcifications or new suspicious mass in either breast. Symmetric densities within the left breast central inner and central upper margin left breast. Spot compression views recommended. Overall Assessment: Incomplete: need additional imaging evaluation, BI-RAD 0 Management: Diagnostic Mammogram of the left breast. . Patient should continue monthly self-breast exams. A clinical breast exam by your physician is recommended on an annual basis. This exam should not preclude additional follow-up of suspicious palpable abnormalities. Note on Mariann scores and lifetime risk: 1. A Mariann score greater than 3% is considered moderate risk. If this is the case, consider specialist referral to assess eligibility for a risk reducing agent. 2. If overall lifetime risk for the development of breast cancer is 20% or higher, the patient may qualify for future screening with alternating mammogram and breast MRI. Electronically signed and approved by: Porfirio Cardenas M.D. Radiologis
== END | disposition home or self-care (01) ==
LOC: RADMAMWWP 15:10
PROVIDERS: ATTEND Internal Medicine
DX: Z12.31 Encounter for screening mammogram for malignant neoplasm of breast (principal); E04.2 Nontoxic multinodular goiter; R59.0 Localized enlarged lymph nodes
CPT/HCPCS: 76536; 77067

== ENCOUNTER → 2023-07-17 | Outpatient (CLI) | payer OTHER ==
--- NOTE | 2023-07-17 09:51 | USB ---
Reason for Exam: Additional evaluation requested from abnormal screening. Patient History: Menarche at age 12. First Full-Term at age 25. Patient has history of breast feeding. Currently using Progesterone, starting at age 37. Maternal aunt had ovarian cancer under age 50. Risk Values: Mariann 5 year model risk: 0.6%. NCI Lifetime model risk: 9.8%. Technique: Method: Targeted. Prior Study Comparison: 07/11/2023 Bilateral MG screening mammo w CAD, [facility]. Findings: The medial section of the breast of the left breast, the axilla of the left breast and the retroareolar of the left breast were scanned. No solid or cystic masses are identified. There is scanned from 6 clot through the 9:00 position to the 12:00 position. No suspicious abnormalities to correlate with the focal asymmetry within the mammogram is evident. This may be a benign focal asymmetry on mammography. Short-term follow-up is recommended to confirm stability. Overall Assessment: Probably benign, BI-RAD 3 Management: Diagnostic Mammogram of the left breast in 6 months. A clinical breast exam by your physician is recommended on an annual basis and results should be correlated with mammographic findings. This exam should not preclude additional follow-up of suspicious palpable abnormalities. Results were given to the patient verbally at the time of exam. Electronically signed and approved by: Chris Ramos D.O. Radiologis
--- NOTE | 2023-07-17 22:41 | MM ---
Reason for Exam: Additional evaluation requested from abnormal screening. Last screening mammogram was performed less than 1 month ago. Patient History: Menarche at age 12. First Full-Term at age 25. Patient has history of breast feeding. Currently using Progesterone, starting at age 37. Maternal aunt had ovarian cancer under age 50. Risk Values: Mariann 5 year model risk: 0.6%. NCI Lifetime model risk: 9.8%. Prior Study Comparison: 07/11/2023 Bilateral MG screening mammo w CAD, [facility]. Tissue Density: Left: The breasts are heterogeneously dense, which may obscure small masses. Findings: Analyzed By CAD. Under compression the focal asymmetry within the lower inner posterior left breast is persistent. Ultrasound is recommended for additional workup. A posterior horn lateral focal asymmetry disperses on compression. No underlying spiculated or lobular mass is evident. No suspicious groups of microcalcifications, spiculated or lobular masses, architectural distortion or other secondary signs of malignancy are mammographically apparent.Under compression the focal asymmetry within the lower inner posterior left breast is persistent. Ultrasound is recommended for additional workup. A posterior lateral focal asymmetry disperses on compression. No underlying spiculated or lobular mass is evident. No suspicious groups of microcalcifications, spiculated or lobular masses, architectural distortion or other secondary signs of malignancy are mammographically apparent. Overall Assessment: Incomplete: need additional imaging evaluation, BI-RAD 0 Management: Diagnostic Breast Ultrasound of the left breast. A negative mammogram report should not preclude additional follow up of suspicious palpable abnormalities. Patient should continue monthly self breast exam. A clinical breast exam by your physician is recommended on an annual basis and results should be correlated with mammographic findings. Electronically signed and approved by: Chris Ramos D.O. Radiologis
== END | disposition home or self-care (01) ==
LOC: RADMAMWWP 08:31
PROVIDERS: ATTEND Internal Medicine
DX: R92.332 Mammographic heterogeneous density, left breast (principal)
CPT/HCPCS: 77065; 76642; G0279; 77061

== ENCOUNTER 2023-07-30 09:05 | Day surgery (SDC) | payer OTHER ==
[2023-07-30] MEDS: ALPRAZolam 0.5 MG TAB PO STA (09:23)
[2023-07-30 09:48] VITALS: RESP 18; TEMP 99
--- NOTE | 2023-07-30 10:40 | US ---
ULTRASOUND GUIDED FNA THYROID BIOPSY: CLINICAL HISTORY: Left thyroid nodule FINDINGS: The procedure was explained to the patient. The risks, complications, benefits and alternatives were discussed and any questions were answered. Informed consent was obtained. Patient was placed supin e on the ultrasound table and prepped and draped in the usual sterile fashion. Utilizing a 25 gauge needle, five passes were made into the requested left thyroid nodule. Patient was stable throughout the procedure. Pathology is pending. All elements of maximal barrier technique were utilized. IMPRESSION: 1. Successful ultrasound guided FNA thyroid biopsy.
[2023-07-30 11:08] VITALS: BP 152/98; PULSE 78
== END 2023-07-30 10:56 | disposition home or self-care (01) ==
LOC: RADPROMAIN 09:05
PROVIDERS: ATTEND Internal Medicine
DX: E04.1 Nontoxic single thyroid nodule (principal)
CPT/HCPCS: 10005; 88173; 88305

== ENCOUNTER → 2024-07-31 | Outpatient (CLI) | payer OTHER ==
--- NOTE | 2024-07-31 16:00 | MR ---
INDICATION: Patient age:Female; 43 years old; Reason for study: B02.29 OTHER POSTHERPETIC NERVOUS SYSTEM INV B02.9; [facility]. COMPARISON: None. TECHNIQUE: Multi planar, multi sequence imaging was performed through the brain. The patient was then given 7 cc of Gadobutrol intravenously and multi planar, T1 fat-saturation images were obtained. FINDINGS: The byers-white junctions, ventricular system, basal cisterns appear unremarkable. Age-appropriate cer ebral parenchymal volume. Diffusion-weighted imaging shows no evidence of restricted diffusion to sug gest acute/subacute infarct. Intracranial arterial flow voids are maintained. Midline structures show no abnormality. Single medial posterior left frontal lobe 5 mm T2/FLAIR hyperintense focus (series 5 01, image 26). The susceptibility weighted images do not reveal any evidence for micro-hemorrhage. In cidental developmental venous anomaly within the right parietal lobe. After administration of gadolin ium, no abnormal enhancement is seen. The bone marrow signal is within normal limits. The paranasal sinuses and globes are unremarkable. IMPRESSION: 1. No evidence of intracranial mass, acute/subacute infarct, or abnormal enhancement. 2. Single nonspecific nonenhancing left frontal lobe subcortical white matter focus. Etiologies inclu de small vessel ischemic disease versus chronic migraine versus demyelinating disease versus other. [facility], , 07/31/2024 3:58 PM
== END | disposition home or self-care (01) ==
LOC: RADMRIMAIN 14:38
PROVIDERS: ATTEND Psychiatry & Neurology Neurology
DX: B02.29 Other postherpetic nervous system involvement (principal); B02.9 Zoster without complications; R90.82 White matter disease, unspecified
CPT/HCPCS: 70553; A9585